=== PATIENT | female | born 1970 | race Hispanic/Latino ===

== ENCOUNTER 2018-07-19 11:49 | Observation (INO) | payer MEDICARE, MEDICAID, OTHER ==
[2018-07-19 12:05] VITALS: BMI 35.3
--- NOTE | 2018-07-19 12:34 | ED PDOC ---
Arrival/HPI - General Chief Complaint: High Blood Pressure Time Seen by Provider: 07/19/18 12:00 Historian: Patient - History of Present Illness Narrative History of Present Illness (Text): 07/19/18 12:34 Patient is a 47 year old female whose past medical history includes Coronary Artery Disease, hypercholesterolemia, myocardial infarction(40 years old), coronary stent placementx2, and CABGx3, who presents to the Emergency Department with her daughter for 4 days of elevated BP, constant non radiating chest heaviness, and headache. Patient reports gradual onset of a throbbing headache across her forehead over the past 4 days, which is now a 9/10 in severity. Her headache prompted her to measure her BP at home and noticed that her BP has been labile. She presented to her apple press operator today for further evaluation of her he adache and BP, and was subsequently instructed to present to the Emergency Department. She admits to having persistent chest heaviness over the past 4 days with intermittent shortness of breath and diaphoresis. Denies any chest pain. She takes Percocet once daily for back pain, and notes the medication didn't alleviate her headache. Patient's antihypertensive medications are Hydralazine, HCTZ, and Labetalol, which she has taken today. She has also taken her thyroid medication today, and has taken Ibuprofen 800mg(07:00), and 4 tablets of Tylenol(09:15) today with little alleviation of her headache. Of note patient has a strong family history of heart disease and myocardial infarction. She isn't currently taking any Aspirin because she thought that it was only required for a year following stent placement. Patient denies fevers, chills, cough, abdominal pain, nausea, vomiting, diarrhea, neck pain/stiffness, back pain, urinary/bowel changes, syncope, dizziness, or any other complaint. Director Of Adult Epilepsy: Time/Duration: < week Symptom Onset: Gradual Symptom Course: Unchanged Quality: Throbbing Severity Level: 9 Context: Home Past Medical History - Provider Review Nursing Documentation Reviewed: Yes - Past History Past History: No Previous - Infectious Disease Hx of Infectious Diseases: None - Tetanus Immunization Tetanus Immunization: Unknown - Cardiac Hx NV: Yes Hx Hypertension: Yes Other/Comment: cardiac cath x 2 stents. triple bypass - Pulmonary Hx Respiratory Disorders: Yes Hx Asthma: Yes Hx Bronchitis: Yes Hx Chronic Obstructive Pulmonary Disease (COPD): Yes Hx Pneumonia: Yes - Neurological Hx Transient Ischemic Attacks (TIA): No - HEENT Hx HEENT Disorder: Yes Hx Blind: No Hx Cataracts: No Hx Difficulty Chewing: No Hx Epistaxis: No Hx Glaucoma: No Hx Macular Degeneration: No Other/Comment: b/l ear surgeries repair eardrum and tubes in and out multiple 8 or 10 procedures, right ear hearing loss - Renal Hx Renal Disorder: No Hx Dialysis: No Hx Kidney Stones: No Hx Neurogenic Bladder: No Hx Pyelonephritis: No Hx Renal Cancer: No Hx Renal Failure: No - Endocrine/Metabolic Hx Diabetes Mellitus Type 1: No Hx Diabetes Mellitus Type 2: No Hx Hypothyroidism: Yes - Hematological/Oncological Hx Blood Transfusions: No Hx Blood Transfusion Reaction: No - Integumentary Hx Dermatological Disorder: Yes Hx Basal Cell Carcinoma: No Hx Eczema: Yes Hx Melanoma: No Hx Psoriasis: No Hx Squamous Cell Carcinoma: No Other/Comment: CELLULITIS OF DORSUM OF LEFT FOOT POST EXOSTECTOMY. STITCHES. - Musculoskeletal/Rheumatological Hx Falls: No - Gastrointestinal Hx Gastrointestinal Disorders: No Hx Pancreatitis: No HX Swallowing Problems: No - Genitourinary/Gynecological Hx Genitourinary Disorders: Yes (3 C SECTION) Other/Comment: FIBROIDS, - Psychiatric Hx Psychophysiologic Disorder: No Hx Anxiety: No Hx Bipolar Disorder: No Hx Depression: No Hx Emotional Abuse: No Hx Hallucinations: No Hx Panic Disorder: No Hx Post Traumatic Stress Disorder: No Hx Psychosis: No Hx Physical Abuse: No Hx Schizophrenia: No Hx Sexual Abuse: No Hx Substance Use: No - Surgical History Hx Coronary Artery Bypass Graft: Yes (2010) - Anesthesia Hx Anesthesia: Yes Hx Anesthesia Reactions: No Hx Malignant Hyperthermia: No - Suicidal Assessment Feels Threatened In Home Enviroment: No Family/Social History - Physician Review Nursing Documentation Reviewed: Yes Family/Social History: No Known Family HX Smoking Status: Never Smoked Hx Alcohol Use: No Hx Substance Use: No Hx Substance Use Treatment: No Allergies/Home Meds Allergies/Adverse Reactions: Allergies nafcillin Allergy (Verified 10/22/16 13:50) REDNESS Home Medications: Home Meds Medication Instructions Recorded Confirmed Labetalol [Trandate] 200 mg PO BID 11/24/15 07/19/18 Simvastatin [Zocor] 20 mg PO DAILY 11/24/15 07/19/18 hydrALAZINE [Apresoline] 1 tab PO BID 07/19/18 07/19/18 Review of Systems - Physician Review All systems were reviewed & negative as marked: Yes - Review of Systems Constitutional: absent: Fevers, Night Sweats Respiratory: SOB Cardiovascular: Other (chest heaviness) Gastrointestinal: absent: Abdominal Pain, Diarrhea, Nausea, Vomiting Genitourinary Female: absent: Urine Output Changes Musculoskeletal: absent: Back Pain, Neck Pain Neurological: Headache. absent: Dizziness Endocrine: Diaphoresis Physical Exam Vital Signs Reviewed: Yes Vital Signs Temp Pulse Resp BP Pulse Ox 07/19/18 12:05 98.5 F 107 H 18 228/123 H 97 Temperature: Afebrile Blood Pressure: Hypertensive Pulse: Tachycardic Respiratory Rate: Normal Appearance: Positive for: Well-Appearing Mental Status: Positive for: Alert and Oriented X 3 - Systems Exam Head: Present: Atraumatic, Normocephalic Pupils: Present: PERRL Extroacular Muscles: Present: EOMI Conjunctiva: Present: Normal Mouth: Present: Moist Mucous Membranes Neck: Present: Normal Range of Motion Respiratory/Chest: Present: Clear to Auscultation, Good Air Exchange. No: Respiratory Distress, Accessory Muscle Use Cardiovascular: Present: Regular Rate and Rhythm, Normal S1, S2. No: Murmurs Abdomen: No: Tenderness, Distention, Peritoneal Signs Back: Present: Normal Inspection Upper Extremity: Present: Normal Inspection. No: Cyanosis, Edema Lower Extremity: Present: Normal Inspection. No: Edema Neurological: Present: GCS=15, CN II-XII Intact, Speech Normal Skin: Present: Warm, Dry, Normal Color. No: Rashes Psychiatric: Present: Alert, Oriented x 3, Normal Insight, Normal Concentration Medical Decision Making ED Course and Treatment: 07/19/18 12:37 Impression: 47 year old patient complaining of gradual onset of a severe headache, labile blood pressure, and chest heaviness over the past 4 days. Because of patient's presentation and history will do a cardiac workup. Differential Diagnosis included but are not limited to: Plan: -- EKG -- Cardiac enzymes -- Labs -- Chest X-ray -- Aspirin -- Nitrostat -- O2 nasal cannula -- Urianlysis -- Reassess and disposition Prior Visits: Notes and results from previous visits were reviewed. Progress Notes: 07/19/18 12:18 EKG shows NSR at 96 BPM with normal axis and intervals. nonspecific T wave changes, no ST elevations. Interpreted by me. 07/19/18 14:00 Chest X-ray: Dictator : Jitendra Perez MD IMPRESSION: No active disease. 07/19/18 14:03 On reevaluation patient's chest heaviness has resolved with nitroglycerinx1, but her headache persists. Repeat BP is 190/110. Will administer Hydralazine IV and Tylenol PO. 07/19/18 14:56 Repeat BP 179/85. Head CT without contrast ordered. 07/19/18 16:18 Repeat BP 155/92 07/19/18 16:20 Discussed case with , who is covering for patient's PMD , and who is aware of and agrees to admit patient under her service. She is aware that CT is pending at time of patient's admission. 07/19/18 16:[address] without Contrast: Dictator : Frances Trejo MD FINDINGS: HEMORRHAGE: No intracranial hemorrhage. BRAIN: No mass effect or edema. 4 mm left chronic basal ganglia lacunar type infarct. Mild nonspecific white matter changes consistent with microvascular ischemic change. Please note that MRI with diffusion imaging is more sensitive in the detection of acute ischemic event. VENTRICLES: No hydrocephalus. CALVARIUM: Unremarkable. PARANASAL SINUSES: Mucosal polyp/retention cyst, left maxillary sinus MASTOID AIR CELLS: Unremarkable as visualized. No inflammatory changes. OTHER FINDINGS: None. IMPRESSION: Small chronic 4 mm left basal ganglia lacunar type infarct. Mild nonspecific white matter changes. Left maxillary retention polyp/cyst. 07/19/18 16:55 Spoke to and told him that the patient will be admitted. He stated that patient has been noncompliant with her medication regimen. - Lab Interpretations I have reviewed the lab results: Yes - RAD Interpretation Master [employer]: Radiologist - EKG Interpretation Interpreted by ED Physician: Yes Type: 12 lead EKG - Scribe Statement The provider has reviewed the documentation as recorded by the Scribizabela Marquez Provider Scribe Attestation: All medical record entries made by the Scribe were at my direction and personally dictated by me. I have reviewed the chart and agree that the record accurately reflects my personal performance of the history, physical exam, medical decision making, and the department course for this patient. I have also personally directed, reviewed, and agree with the discharge instructions and disposition. Disposition/Present on Arrival - Present on Arrival Any Indicators Present on Arrival: No History of DVT/PE: No History of Uncontrolled Diabetes: No Urinary Catheter: No History of Decub. Ulcer: No History Surgical Site Infection Following: None - Disposition Have Diagnosis and Disposition been Completed?: Yes Diagnosis: Chest pain, Poorly controlled blood pressure Disposition: HOSPITALIZED Disposition Time: 16:28 Patient Plan: Admission, Telemetry Patient Problems: Current Active Problems Problem Status Onset Chest pain Acute Hypertension Acute Poorly controlled blood pressure Acute Condition: FAIR Forms: [employer] (French)
[2018-07-19 13:05] LABS: BASO # 0.04 K/mm3 (0.0-2.0); BASO % 0.4 % (0.0-3.0); EOS # 0.3 (0.0-0.7); EOS % 2.4 % (1.5-5.0); GRAN # 6.34 (1.4-6.5); GRAN % 61.1 % (50.0-68.0); HEMOGLOBIN 15.3 g/dL (12.0-16.0); LYMPH # 3.3 (1.2-3.4); LYMPH % 31.3 % (22.0-35.0); MEAN CELL VOLUME 88.2 fl (80.0-105.0); MEAN CORPUSCULAR HEMOGLOBIN 30.7 pg (25.0-35.0); MEAN CORPUSCULAR HGB CONC 34.9 g/dl (31.0-37.0); MEAN PLATELET VOLUME 9.5 fl (7.0-11.0); MONO # 0.5 (0.1-0.6); MONO % 4.8 % (1.0-6.0); RBC 4.98 10^6/uL (3.5-6.1); RED CELL DISTRIBUTION WIDTH 13.1 % (11.5-14.5); WHITE BLOOD COUNT 10.4 10^3/ul (4.5-11.0)
[2018-07-19 13:13] LABS: INR 1.07; PARTIAL THROMBOPLASTIN TIME 29.4 Seconds (25.1-36.5); PROTHROMBIN TIME 12.3 SECONDS (9.4-12.5)
[2018-07-19 13:53] LABS: ALB/GLOB RATIO 1.2 (1.1-1.8); ALT/SGPT 41 U/L (7-56); AST/SGOT 32 U/L (14-36); BLOOD UREA NITROGEN 11 mg/dL (7-21); CALCIUM 9.7 mg/dL (8.4-10.5); GFR NON-AFRICAN AMERICAN > 60
--- NOTE | 2018-07-19 13:56 | RAD ---
Date of service: 07/19/2018 HISTORY: chest pain COMPARISON: 10/22/2016 FINDINGS: LUNGS: No active pulmonary disease. PLEURA: No significant pleural effusion identified, no pneumothorax apparent. CARDIOVASCULAR: Normal. OSSEOUS STRUCTURES: No significant abnormalities. VISUALIZED UPPER ABDOMEN: Normal. OTHER FINDINGS: None. IMPRESSION: No active disease.
[2018-07-19 14:02] LABS: TROPONIN I < 0.01 ng/mL
[2018-07-19 14:06] LABS: URINE BILIRUBIN NEGATIVE (NEGATIVE); URINE BLOOD NEGATIVE (NEGATIVE); URINE COLOR YELLOW (YELLOW); URINE GLUCOSE (UA) NEGATIVE (NEGATIVE); URINE LEUKOCYTE ESTERASE NEGATIVE Leu/uL (NEGATIVE); URINE PROTEIN NEGATIVE mg/dL (<30 mg/dL); URINE UROBILINOGEN 0.2 E.U./dL (<1 E.U./dL)
[2018-07-19 14:07] LABS: URINE APPEARANCE CLEAR (CLEAR)
--- NOTE | 2018-07-19 16:33 | CT ---
Date of service: 07/19/2018 PROCEDURE: CT HEAD WITHOUT CONTRAST. HISTORY: h/a; HTN COMPARISON: Noncontrast head CT 10/22/16 TECHNIQUE: Axial computed tomography images were obtained through the head/brain without intravenous contrast. Radiation dose: Total exam DLP = 944.85 mGy-cm. This CT exam was performed using one or more of the following dose reduction techniques: Automated exposure control, adjustment of the mA and/or kV according to patient size, and/or use of iterative reconstruction technique. FINDINGS: HEMORRHAGE: No intracranial hemorrhage. BRAIN: No mass effect or edema. 4 mm left chronic basal ganglia lacunar type infarct. Mild nonspecific white matter changes consistent with microvascular ischemic change. Please note that MRI with diffusion imaging is more sensitive in the detection of acute ischemic event. VENTRICLES: No hydrocephalus. CALVARIUM: Unremarkable. PARANASAL SINUSES: Mucosal polyp/retention cyst, left maxillary sinus MASTOID AIR CELLS: Unremarkable as visualized. No inflammatory changes. OTHER FINDINGS: None. IMPRESSION: Small chronic 4 mm left basal ganglia lacunar type infarct. Mild nonspecific white matter changes. Left maxillary retention polyp/cyst.
--- NOTE | 2018-07-19 17:50 | CARD ---
APPROVED REPORT Date of service: 07/19/2018 EKG Measurement Heart [id number] <Conclusion> Sinus rhythm with premature atrial complexes Abnormal QRS-T angle, consider primary T wave abnormality Abnormal ECG
[2018-07-19] MEDS ORDERED: Oxycodone/Acetaminophen 5/325 mg Tab PO STA (21:31)
[2018-07-19] MEDS ORDERED: Pneumococcal 23-Valent Vaccine IM ONE (23:10)
[2018-07-19] MEDS ORDERED: Influenza Vaccine 60 mcg/0.5 mL SYR (4YR UP) IM ONE (23:10)
--- NOTE | 2018-07-20 00:09 | HP ---
HISTORY OF PRESENT ILLNESS: Ms. Queen is a 47-year-old female who presented to the ED with hypertension, blood pressure was 200 systolic in the ER. She has history of myocardial infarction at age 40, underwent CABG. She has strong family history of myocardial infarction in 30s. She also developed a headache. She received hydralazine in the ER. She is also on labetalol and hydrochlorothiazide. She follows with Dr. Kim, Cardiology. No history of DVT in the family. Positive family history of stroke. PAST MEDICAL HISTORY: Cardiac catheterization, triple bypass surgery, myocardial infarction, bronchitis, COPD, pneumonia. PAST SURGICAL HISTORY: Ear surgery. FAMILY HISTORY: Strong family history of myocardial infarction at early age. PERSONAL HISTORY: Never smoked. No history of alcohol abuse. ALLERGIES: NAFCILLIN CAUSES ERYTHEMA. HOME MEDICATIONS: Labetalol 200 mg p.o. b.i.d., simvastatin 20 mg daily, hydralazine 10 mg b.i.d. REVIEW OF SYSTEMS: As per HPI. Rest of 12-point review systems reviewed negative. PHYSICAL EXAMINATION: GENERAL: Comfortable in bed in no acute distress. VITAL SIGNS: Temperature 98.5, heart rate 107, respiratory rate 18 per minute, blood pressure on arrival 228/123, pulse ox 97% on room air. Repeat blood pressure 152, systolic. HEENT: No pallor. NECK: No lymphadenopathy. CHEST: Air entry present and equal bilaterally. No added sounds. CARDIOVASCULAR: S1 and S2 normal. No murmur. No gallop. ABDOMEN: Soft, nontender. No hepatosplenomegaly. EXTREMITIES: No edema. CENTRAL NERVOUS SYSTEM: Alert, oriented x3. No focal sensory or motor deficit. EKG: No ST-T changes. Chest x-ray: No infiltrate. CT head, mild nonspecific white matter changes. Left maxillary cyst. A 4-mm left basal ganglia lacunar infarct. ASSESSMENT: 1. Uncontrolled hypertension. 2. Myocardial infarction at early age. 3. Left basal ganglia infarction, chronic white matter ischemic changes. PLAN: She will be admitted to the hospital. Cardiology consultation with Dr. Kim requested. We will continue hydralazine 10 mg four times a day for systolic blood pressure more than 160 systolic. We will continue labetalol 200 mg p.o. b.i.d. She has strong family history of myocardial infarction at early age. CT brain showed lacunar infarct basal ganglia. We will do hypercoagulable workup to see underlying genetic factor which can account for strong family history of myocardial infarction. We will also consult Neurology for basal ganglia infarction, although it has been chronic. Lipitor 10 mg daily, to continue Zofran p.r.n. for nausea and vomiting, Percocet p.r.n. for headaches. Anjali Calderon MD
[2018-07-20] MEDS ORDERED: Naproxen 275 mg Tab PO STA (04:59)
[2018-07-20] MEDS: Oxycodone/Acetaminophen 5/325 mg Tab PO SCH ×2 (09:47→20:54)
--- NOTE | 2018-07-20 09:59 | CARD ---
APPROVED REPORT Date of service: 07/20/2018 EKG Measurement Heart [id number] IN [id number] [id number] <Conclusion> Normal sinus rhythm Prolonged QT
--- NOTE | 2018-07-20 10:42 | PN ---
DATE: 07/20/2018 FOLLOWUP NOTE SUBJECTIVE: She is comfortable in bed, in no acute distress. Admitted with uncontrolled hypertension. Blood pressures were in 200 yesterday. Blood pressure is better controlled. She was currently 114/75. She was given hydralazine p.r.n. She has history of myocardial infarction, status post CABG. CT head showed left basal ganglion lacunar infarct and 4 mm. Neurology consult requested. Input awaited. No chest pain. No shortness of breath. REVIEW OF SYSTEMS: As per HPI. Rest of [id number]-[id number] of systems reviewed negative. MEDICATIONS: Tylenol 650 every 6 hours p.r.n., Lipitor 10 mg daily, hydralazine 10 mg four times a day p.r.n., labetalol 200 mg p.o. b.i.d., Zofran 4 mg every 6 hours, Percocet p.r.n. LABORATORY DATA: White count 10.4, hemoglobin 15.3, platelets 275. Sodium 138, potassium 4.2, creatinine 0.7. ASSESSMENT: 1. Uncontrolled hypertension. 2. Possible hypercoagulable state. 3. New 4 mm left ganglion infarction. PLAN: Blood pressure is better controlled with current medications. Cardiology consultation, Dr. Kim requested, input awaited. Neurology consultation, Dr. Del Cid requested for basal ganglion infarction. Hypercoagulable workup done today. Results awaited. She has strong family history of myocardial infarction at young age. It is pertinent to rule out hypercoagulable state, particularly factor V Leiden or prothrombin gene mutation given rise to this presentation in the family at younger age. Anjali Calderon MD
[2018-07-20] MEDS: Apap-Butalbital-Caffeine 325-50-40mg Tab PO PRN ×2 (11:16→18:19)
[2018-07-20] MEDS ORDERED: Gadodiamide 287 MG/ML VIAL (15ML) IV ONE (16:01)
--- NOTE | 2018-07-20 16:36 | MRI ---
Date of service: 07/20/2018 PROCEDURE: MRI BRAIN WITH AND WITHOUT CONTRAST HISTORY: BG infarct COMPARISON: 03/09/2013 TECHNIQUE: Multiplanar, multisequence MR images of the brain were obtained with and without intravenous contrast enhancement. FINDINGS: HEMORRHAGE: None DWI: No evidence of an acute or early subacute infarction. BRAIN PARENCHYMA: No mass,mass effect or edema. No atrophy or chronic microvascular ischemic changes. ENHANCEMENT: No abnormal intracranial enhancement. VENTRICLES: Unremarkable. No hydrocephalus. CRANIUM: Unremarkable. ORBITS: Grossly unremarkable. PARANASAL SINUSES/MASTOIDS: Clear VASCULAR SYSTEM: Skull base flow voids intact. OTHER FINDINGS: None . IMPRESSION: Unremarkable pre and post contrast enhanced MRI of the brain.
--- NOTE | 2018-07-20 18:43 | CON ---
DATE: 07/20/2018 CARDIOLOGY CONSULTATION HISTORY: The patient is a 47-year-old woman, who presents as an outpatient with a blood pressure 220 systolic associated with a headache. The patient suffers from history of hypertension, hypercholesterolemia, status post coronary artery bypass surgery as well as CAD. She has a history of noncompliance with the medical advice. She stopped her aspirin despite being told to continue aspirin. In addition, it is likely she has stopped her hypertensive medications, although the patient denies it. SOCIAL HISTORY: She denies smoking. REVIEW OF SYSTEMS: Fourteen-point review of systems is reviewed in detail. No angina. No edema in the lower extremities. Positive dizziness. Positive headaches. PHYSICAL EXAMINATION: VITAL SIGNS: Blood pressure after placing her back on her medications was 110 systolic. NECK: Negative JVD. LUNGS: Without rales. HEART: Reveals S1, S2. EXTREMITIES: Without edema. LABORATORY DATA: Laboratories includes an EKG that shows no acute changes. Hemoglobin is 15.3. Chemistries: BUN and creatinine are unremarkable. Troponin is negative x1. The glucose is 113. Cholesterol is 281. Her LDL is 200. IMPRESSION: 1. Accelerated hypertension. 2. Hypercholesterolemia. 3. History of coronary artery bypass surgery. 4. Coronary artery disease. 5. History of obesity. 6. Recurrent noncompliance. PLAN: Given these findings, we will restart the patient on her statin therapy. We will restart her on her antihypertensive medications. The patient is able to ambulate without symptoms. We will arrange for an outpatient stress test and an echo. Zion Kim MD
--- NOTE | 2018-07-20 19:18 | US ---
PROCEDURE: Bilateral carotid artery duplex ultrasound HISTORY: Carotid stenosis PHYSICIAN(S): Zion Carr MD. TECHNIQUE: Duplex sonography and color-flow Doppler were used to evaluate the carotid bifurcations and limited segments of the vertebral arteries bilaterally. FINDINGS: There is mild smooth hypoechoic plaque noted at the carotid bifurcations bilaterally. The peak systolic velocity in the proximal right internal carotid artery is 119 cm/sec. This corresponds to a 20 to 39% proximal right ICA stenosis. Normal systolic velocities are noted in the proximal right external carotid artery. There is antegrade flow in the right vertebral artery. The peak systolic velocity in the proximal left internal carotid artery is 159 cm/sec. This corresponds to a 40-59 percent proximal left ICA stenosis. Normal systolic velocities are noted in the proximal left external carotid artery. There is antegrade flow in the left vertebral artery. IMPRESSION: 1. 40-59 percent proximal left ICA stenosis. 2. 20-39 percent proximal right ICA stenosis 3. Flow in both vertebral arteries
--- NOTE | 2018-07-21 00:34 | CON ---
DATE: 07/20/2018 HISTORY OF PRESENT ILLNESS: This is a 47-year-old female with past medical history of high blood pressure, COPD, bronchitis, RI and had a bypass surgery, came here with the complaint of blood pressure 200 systolic to the ER and also complained of headache. Called to evaluate the patient because the CAT scan of the head showed left basal ganglia infarct, old chronic. PAST MEDICAL HISTORY: RI, bronchitis, COPD, pneumonia. PAST SURGICAL HISTORY: Ear surgery. FAMILY HISTORY: Strong family history of RI. ALLERGIES: NAFCILLIN. HOME MEDICATIONS: Labetalol, simvastatin, hydralazine. REVIEW OF SYSTEMS: A 10-point review of systems was negative. PHYSICAL EXAMINATION: HEENT: Normocephalic, atraumatic. NECK: Supple. NEUROLOGIC: Alert, awake and oriented x3. No aphasia. Cranial nerves II through XII are intact. Pupils reactive. EOM intact. Visual field full. No facial asymmetry. Tongue in the midline. Motor examination: Moves all the extremities equally. Tone normal. Deep tendon reflexes are 1+. Both plantars are downgoing. Sensory appears intact. Cerebellar, gait deferred. IMPRESSION: 1. Headache possibly secondary to high blood pressure. 2. Basal ganglia chronic infarct. PLAN: We will do the MRI of the head with and without Gadolinium and carotid Doppler and suggested her to take aspirin 81 mg p.o. daily. Thank you very much for allowing us to participate in the care of this patient. Ilya Del Cid MD
[2018-07-21] MEDS: Apap-Butalbital-Caffeine 325-50-40mg Tab PO PRN ×3 (01:50→15:19)
[2018-07-21] MEDS: Oxycodone/Acetaminophen 5/325 mg Tab PO SCH ×2 (09:54→19:56)
--- NOTE | 2018-07-21 11:34 | PN ---
DATE: 07/21/2018 CARDIOLOGY FOLLOWUP SUBJECTIVE: The patient's blood pressure remains elevated. Today, the blood pressure is 180-190 systolic despite labetalol The patient's headache is better. PHYSICAL EXAMINATION: NECK: Negative JVD. LUNGS: Without rales. HEART: Reveals S1, S2. EXTREMITIES: Without edema. LABORATORY DATA: Hemoglobin is 15.3. Chemistries: BUN and creatinine are unremarkable. Glucose is 131. IMPRESSION: 1. Accelerated hypertension. 2. Coronary artery disease. 3. History of coronary artery bypass surgery. 4. Diabetes mellitus. 5. Hypercholesterolemia. PLAN: Given these findings, we will start the patient on Vasotec 5 b.i.d. along with hydrochlorothiazide in addition. In addition, we will order renal ultrasound and Dopplers of the renal arteries. Zion Kim MD
[2018-07-21] MEDS ORDERED: Naproxen 550 mg Tab PO PRN (16:31)
--- NOTE | 2018-07-21 17:22 | PN ---
DATE: 07/21/2018 NEUROLOGY FOLLOWUP CHIEF COMPLAINT: Followup for headache. SUBJECTIVE: The patient is seen and examined at the bedside. The MRI of the brain showed no acute intracranial abnormalities. She still has elevated systolic and diastolic blood pressures. Cardiology on board. Fioricet only helped the headache seldomly. Carotid Doppler showed 20-39% proximal ICA stenosis in the right ICA and left ICA 40-59% and will need to be on aspirin 81 and statin of 40 in terms of Lipitor and needs weight reduction. PAST MEDICAL HISTORY: Has history of COPD; coronary artery disease, status post triple bypass; [place]. PAST SURGICAL HISTORY: Eye surgery and CABG. FAMILY HISTORY: Myocardial infarction at early age. PERSONAL HISTORY: No illicit drug use, smoking or EtOH abuse. ALLERGIES: NAFCILLIN CAUSING ARRHYTHMIA. HOME MEDICATIONS: Reviewed by nurses' reconciliation sheet. REVIEW OF SYSTEMS: Fourteen-point review of systems is negative except as per the HPI. LABORATORY DATA: No new labs done today. PHYSICAL EXAMINATION: VITAL SIGNS: Temperature 97.9, pulse rate 69, blood pressure 140/90, respiratory rate of 20, oxygen saturation 98% by room air. GENERAL: The patient is sitting up in bed, in no acute distress. HEENT: Atraumatic, normocephalic. PERRLA. Extraocular muscles intact. NECK: Supple. No JVD, no adenopathy noted. LUNGS: Clear to auscultation. No adventitious sounds. HEART: S1, S2. Normal rate and rhythm. No murmurs, rubs or gallops. ABDOMEN: Soft, nontender and nondistended. Bowel sounds are present. EXTREMITIES: No clubbing. No cyanosis. Peripheral pulses 2+ felt bilaterally. NEUROLOGIC: The patient is alert and oriented to person, place, month and year. Speech is fluent without any errors. Cranial nerves II through XII intact. Motor exam: Moves all extremities equally. Toes are downgoing bilaterally. Sensory exam: Light touch, pinprick, proprioception and vibration are intact. DTRs are 2+ throughout. Gait is deferred for now. IMPRESSION: 1. Headache is secondary to tension headache from hypertensive urgency. At this time, she has some mild carotid artery disease in the left proximal internal carotid artery, which she will need to be on antiplatelet therapy of aspirin 81 and statin in terms of Lipitor 40 for stroke prevention. 2. Keep systolic blood pressure between 130s-140s and diastolic 70-80s. 3. Needs renal artery ultrasound to assess for renal artery stenosis causing the hypertension, refractory. 4. Follow up with Cardiology in regards to her underlying hypertensive medications. 5. Give one dose of Toradol 30 today for acute onset of headache and naproxen 575 every 6 hours with acute onset of headache, along with Fioricet. Once again, thank you for this consult. She is clinically stable. Roshan Del Cid MD
[2018-07-22] MEDS: Apap-Butalbital-Caffeine 325-50-40mg Tab PO PRN ×2 (01:58→09:55)
[2018-07-22 06:06] VITALS: O2SAT 96
[2018-07-22] MEDS: Oxycodone/Acetaminophen 5/325 mg Tab PO SCH ×4 (06:51→17:22)
--- NOTE | 2018-07-22 09:43 | PN ---
DATE: 07/22/2018 CARDIOLOGY FOLLOWUP SUBJECTIVE: The patient is feeling well. PHYSICAL EXAMINATION: VITAL SIGNS: Blood pressure is 110/60, the heart rate is in the 60s. NECK: Negative JVD. LUNGS: Without rales. HEART: Reveals S1, S2. EXTREMITIES: Without edema. LABORATORY DATA: Laboratories are not done. IMPRESSION: 1. Accelerated hypertension, which is now better on standard medications. 2. We will begin tapering the labetalol. 3. Status post coronary artery bypass surgery. 4. History of percutaneous transluminal coronary angioplasty and stent. 5. Headaches have resolved. PLAN: Given these findings, the patient is stable for discharge. The patient is scheduled for an outpatient stress test on Tuesday. The patient will bring in all her medications and will be continued to readjust her medications accordingly. Zion Kim MD
[2018-07-22 13:50] VITALS: BP 111/50; RESP 17; TEMP 98.4
[2018-07-22] MEDS ORDERED: DiphenhydrAMINE 50 mg/ml Inj IVP STA (13:59)
[2018-07-22] MEDS ORDERED: Valproate 500 MG in Sodium Chloride 0.9% 100 ML IVPB ONE (14:34)
[2018-07-22 17:56] VITALS: PULSE 54
[2018-07-23 02:47] LABS: PHOSPHATIDYLSERINE AB IGG 12 U/mL (<10); PHOSPHATIDYLSERINE AB IGM <25 U/mL (<25)
[2018-07-23 06:52] LABS: B2 GLYCOPROTEIN I AB(IGA) <9 SAU (<=20); B2 GLYCOPROTEIN I AB(IGG) <9 SGU (<=20); B2 GLYCOPROTEIN I AB(IGM) <9 SMU (<=20); CARDIOLIPIN AB (IGA) <11 APL (<=11); CARDIOLIPIN AB (IGG) <14 GPL (<=14); CARDIOLIPIN AB (IGM) <12 MPL (<=12); PHOSPHATIDYLSERINE AB IGA <20 U/mL (<20)
--- NOTE | 2018-07-23 15:01 | DS ---
HISTORY OF PRESENT ILLNESS: The patient is 47 years old, seen and examined. The patient was admitted on 07/19/2018, with uncontrolled hypertension, feeling dizzy, lightheaded. The patient was evaluated by Dr. Kim and Dr. Del Cid. The patient underwent MRI that shows right basal ganglia infarct , and carotid Doppler was negative. The patient's medication was adjusted. The patient was seen today still complaining of feeling weak and dizzy and complained of headache, was evaluated by Dr. Roshan Del Cid, was given dose of Depakote and was cleared by cardiology and neurology and was told to followup in the offices. PHYSICAL EXAMINATION: GENERAL: Complaint of feeling dizzy and having headache. VITAL SIGNS: She is afebrile, pulse 65, respirations 20, and blood pressure 111/50. LUNGS: Bilateral fair airflow. No rhonchi or crackle. HEART: S1 and S2 audible. ABDOMEN: Soft and nontender. No rebound. No guarding. NEUROLOGICAL: The patient is awake, alert, oriented, communicative. LABORATORY DATA: Bilateral leg no edema. MRI is negative. Carotid Doppler is unremarkable. ASSESSMENT: 1. Uncontrolled Hypertension. 2. History of basal ganglia infarct. 3. Migraine headaches. PLAN: The patient is being discharged today on hydralazine 25 twice daily with 100 mcg daily, labetalol 100 mg twice a day, hydrochlorothiazide 12.5 twice a day, lisinopril 10 mg daily, atorvastatin 20 mg daily, and aspirin. She will follow with Dr. Roshan Del Cid and Dr. Kim as an outpatient. Lauren Mendiola MD
== END 2018-07-22 19:00 | disposition home or self-care (01) ==
LOC: ED 11:49 → ERH 18:16 → 2RSO 19:02 → ERH 19:07 → 2RSO 20:20
PROVIDERS: ADMIT Internal Medicine Medical Oncology; ATTEND Internal Medicine Medical Oncology
DX: I16.0 Hypertensive urgency (principal); G44.209 Tension-type headache, unspecified, not intractable; G43.909 Migraine, unspecified, not intractable, without status migrainosus; I65.23 Occlusion and stenosis of bilateral carotid arteries; H91.91 Unspecified hearing loss, right ear; I25.10 Atherosclerotic heart disease of native coronary artery without angina pectoris; J44.9 Chronic obstructive pulmonary disease, unspecified; E03.9 Hypothyroidism, unspecified; E78.00 Pure hypercholesterolemia, unspecified; I25.2 Old myocardial infarction; E66.9 Obesity, unspecified; Z68.36 Body mass index [BMI] 36.0-36.9, adult; Z95.5 Presence of coronary angioplasty implant and graft; Z95.1 Presence of aortocoronary bypass graft; Z91.14 Patient's other noncompliance with medication regimen
CPT/HCPCS: 36415; 70450; 70553; 71045; 80053; 81003; 81240; 81241; 81291; 82550; 83090; 83615; 83735; 84484; 85025; 85303; 85305; 85306; 85610; 85730; 86146; 86147; 86148; 93005; 93880; 96374; 96375; 96376; 97161; 99285; A9579; G0378; G8978; G8979; J0360; J1885; J2405

== ENCOUNTER 2018-08-03 06:17 | Day surgery (SDC) | payer MEDICARE, MEDICAID, OTHER ==
[2018-08-01 09:20] VITALS: BMI 34.9
[2018-08-03 07:22] LABS: BASO # 0.05 K/mm3 (0.0-2.0); BASO % 0.4 % (0.0-3.0); EOS # 0.3 (0.0-0.7); EOS % 2.5 % (1.5-5.0); GRAN # 6.53 (1.4-6.5); GRAN % 54.9 % (50.0-68.0); HEMOGLOBIN 14.5 g/dL (12.0-16.0); LYMPH % 33.5 % (22.0-35.0); MEAN CORPUSCULAR HEMOGLOBIN 30.7 pg (25.0-35.0); MEAN CORPUSCULAR HGB CONC 34.5 g/dl (31.0-37.0); MEAN PLATELET VOLUME 9.9 fl (7.0-11.0); MONO % 8.7 % (1.0-6.0); RBC 4.72 10^6/uL (3.5-6.1); RED CELL DISTRIBUTION WIDTH 12.7 % (11.5-14.5); WHITE BLOOD COUNT 11.9 10^3/ul (4.5-11.0)
[2018-08-03 07:31] LABS: INR 1.09; PARTIAL THROMBOPLASTIN TIME 28.8 Seconds (25.1-36.5); PROTHROMBIN TIME 12.5 SECONDS (9.4-12.5)
[2018-08-03 07:33] LABS: BLOOD UREA NITROGEN 18 mg/dL (7-21); CALCIUM 9.9 mg/dL (8.4-10.5); GFR NON-AFRICAN AMERICAN > 60; HDL CHOLESTEROL 46 mg/dL (29-60)
[2018-08-03 07:41] LABS: LDL CHOLESTEROL 127 mg/dL (0-129)
[2018-08-03] MEDS ORDERED: Lidocaine 2% PF (10 ml) Amp ONE (08:07)
[2018-08-03] MEDS ORDERED: Iodixanol 320 MG/ML 100 ML BOTTLE IV ONE (08:07)
[2018-08-03] MEDS ORDERED: Iohexol 350mgl/ml 50 ML ONE (08:07)
[2018-08-03] MEDS ORDERED: Iodixanol 320 MG/ML 200 ML BOTTLE IV ONE (08:07)
[2018-08-03] MEDS ORDERED: Nitroglycerin 50mg in D5W 0 MG/0 ML BOTTLE IV ONE (08:07)
[2018-08-03] MEDS ORDERED: Phenylephrine 10 mg/ml Inj ONE (08:07)
[2018-08-03] MEDS ORDERED: Midazolam 2 MG/2 ML VIAL ONE ×2 (08:26→08:34)
[2018-08-03] MEDS ORDERED: Sodium Chloride 0.9% 1,000 ML IV SCH (09:15)
[2018-08-03] MEDS ORDERED: Oxycodone/Acetaminophen 5/325 mg Tab PO STA (09:39)
[2018-08-03] MEDS ORDERED: Oxycodone/Acetaminophen 5/325 mg Tab ONE (09:42)
[2018-08-03 09:56] VITALS: TEMP 97.4
[2018-08-03 11:40] VITALS: RESP 16
[2018-08-03 12:22] VITALS: O2SAT 95
--- NOTE | 2018-08-03 14:52 | CARDCATH ---
PROCEDURE DATE: 08/03/2018 HISTORY: The patient is a 47-year-old woman with a history of coronary artery bypass surgery, who presents with a blood pressure of 220/120 systolic. She was brought into the hospital where her blood pressure was finally controlled on multiple medications. She is status post coronary artery bypass surgery. A stress test was performed, which showed new ischemic areas. Because of this, cardiac catheterization was recommended. PROCEDURES: Left heart catheterization with coronary arteriography, left ventriculogram, left internal mammary artery angiogram, saphenous vein graft angiogram and selective bilateral renal arteriograms were performed. COMPLICATIONS: There are no complications. FINDINGS: The findings on catheterization revealed a left ventricle that contracted normally. Estimated ejection fraction of 65-70%. Her coronary anatomy revealed a 90% left main stenoses. There is a late filling of the circumflex and LAD. The LAD and circumflex artery revealed 90% proximal and ostial lesions. The RCA was a dominant vessel, which revealed intimal irregularities without critical lesions. The GOFF to the LAD was selectively cannulized and found to provide good antegrade flow to the mid and distal LAD with no critical lesions. The saphenous vein graft to the circumflex artery was patent and provided a good antegrade flow to the circumflex system. The saphenous vein graft to a ramus intermedius was found to be patent and provided good antegrade flow. Bilateral selective renal arteriograms were performed because of her malignant hypertension. There was no renal artery stenoses in both the arteries noted. Angio-Seal was used to close the femoral artery site. The patient tolerated the procedure well. In summary, the procedure revealed normal LV function. Critical left main stenoses with critical lesions in the LAD, ramus intermedius, and circumflex artery. Patent GOFF to the LAD. Patent SVG to the circumflex artery. Patent SVG to the ramus intermedius. No renal artery stenosis noted with selective bilateral renal arteriogram. Given these findings, the patient's treatment will be medical therapy. There is no renal artery stenosis, so the patient's compliance to medical therapy and a cardiac risk reduction program would be appropriate. I have discussed this with the patient and family in detail. ADDENDUM: I performed moderate sedation, which included the presence of an independent trained observer. After administration of fentanyl and Versed, my intra service time was 30 minutes. Zion Kim MD
[2018-08-03 15:20] VITALS: BP 130/58; PULSE 70
== END 2018-08-03 15:36 | disposition home or self-care (01) ==
LOC: CATH 06:17
PROVIDERS: ATTEND Internal Medicine Cardiovascular Disease
DX: I25.110 Atherosclerotic heart disease of native coronary artery with unstable angina pectoris (principal); Z91.19 Patient's noncompliance with other medical treatment and regimen; I25.2 Old myocardial infarction; I10 Essential (primary) hypertension; E78.5 Hyperlipidemia, unspecified; Z95.1 Presence of aortocoronary bypass graft
CPT/HCPCS: 36415; 80048; 80061; 85025; 85610; 85730; 86850; 86900; 93459; 99152; 99153; C1760; C1769; C2629; J1644; J2250; J3010; J7030; J7040; Q9966